=== PATIENT | male | born 1950 | race Caucasian/White ===

== ENCOUNTER 2022-02-18 04:17 | Day surgery (SDC) | payer OTHER, BC ==
[2022-02-14 11:50] VITALS: BMI 26.2
[2022-02-18] MEDS ORDERED: ONDANSETRON 4 MG/2 ML VIAL IVPUSH PRN (07:14)
[2022-02-18] MEDS ORDERED: LACTATED RINGERS SOLUTION 1,000 ML IV SCH (07:15)
[2022-02-18] MEDS ORDERED: DEXAMETHASONE SOD PHOSPHATE 10 MG/1 ML VIAL ONE (07:24)
[2022-02-18] MEDS ORDERED: BUPIVACAINE HCL/PF 0.5% (5MG/ML) 10 ML VIAL ONE (07:24)
[2022-02-18] MEDS ORDERED: ONDANSETRON 4 MG/2 ML VIAL ONE (07:25)
[2022-02-18] MEDS ORDERED: DEXAMETHASONE SOD PHOSPHATE 4 MG/1 ML VIAL ONE (07:25)
[2022-02-18] MEDS ORDERED: MIDAZOLAM HCL 2 MG/2 ML SINGLE DOSE VIAL ONE (07:26)
[2022-02-18] MEDS ORDERED: SUCCINYLCHOLINE CHLORIDE 200 MG/10 ML SYRINGE ONE (07:26)
[2022-02-18] MEDS ORDERED: PROPOFOL 60 ML ONE (07:26)
[2022-02-18] MEDS ORDERED: ceFAZolin SODIUM 1 GM VIAL ONE (08:22)
[2022-02-18] MEDS ORDERED: ceFAZolin SODIUM 1 GM VIAL IVPB ONE (08:30)
[2022-02-18] MEDS ORDERED: LIDOCAINE HCL 1%, 10 MG/ML (20ML VIAL) ONE (08:39)
[2022-02-18] MEDS ORDERED: LIDOCAINE HCL 1%, 10 MG/ML (20ML VIAL) INF ONE (08:43)
[2022-02-18] MEDS ORDERED: ACETAMINOPHEN 1000 MG/100 ML BAG IVPB ONE (09:53)
[2022-02-18 10:58] VITALS: TEMP 98
[2022-02-18] MEDS ORDERED: oxyCODONE HCL 5 MG TABLET PO PRN (11:06)
[2022-02-18] MEDS ORDERED: oxyCODONE HCL 5 MG TABLET ONE (11:21)
[2022-02-18 11:59] VITALS: BP 123/72; PULSE 67; RESP 18
== END 2022-02-18 11:45 | disposition home or self-care (01) ==
LOC: JASU-SURG 04:17
PROVIDERS: ATTEND Orthopaedic Surgery
PROC: 0MB40ZZ Excision of Left Elbow Bursa and Ligament, Open Approach (ICD-10-PCS; principal; 2022-02-18 08:00)
DX: M71.522 Other bursitis, not elsewhere classified, left elbow (principal)
CPT/HCPCS: 88304-TC; 88311-TC; 88312-TC; 88342-TC; 94760; J1100